=== PATIENT | male | born 1960 | race Caucasian/White ===

== ENCOUNTER 2019-04-04 19:35 | Emergency (ER) | payer OTHER ==
[~2019-04-04] VITALS: Ht 170.2 cm; Wt 63.5 kg
[2019-04-04] MEDS ORDERED: METOPROLOL SUCC25 MG (19:50)
== END 2019-04-04 22:29 | disposition home or self-care (01) ==
LOC: ER 19:35
DX: N20.0 Calculus of kidney (principal); R10.31 Right lower quadrant pain; M54.5 Low back pain

== ENCOUNTER 2019-04-09 12:21 | Emergency (ER) | payer OTHER ==
[~2019-04-09] VITALS: Ht 175.3 cm; Wt 65.8 kg
[~2019-04-09 12:21] MED LIST: METOPROLOL SUCC25 MG
== END 2019-04-09 23:18 | disposition home or self-care (01) ==
LOC: ER 12:21
DX: M54.5 Low back pain (principal)